=== PATIENT | male | born 1980 | race Two or more races ===

== ENCOUNTER → 2023-12-13 06:25 | Day surgery (SDC) | payer BC, SELFPAY | LOC: GI 06:25 | PROVIDERS: ATTENDING PHYSICIAN Internal Medicine Gastroenterology | DX: Z12.11 Encounter for screening for malignant neoplasm of colon (principal); K64.8 Other hemorrhoids; K62.1 Rectal polyp; K63.5 Polyp of colon | CPT/HCPCS: 45380; 88305 ==